=== PATIENT | female | born 1985 | race Caucasian/White ===

== ENCOUNTER 2025-02-26 13:12 | Outpatient (AMB) | payer BC, SELFPAY ==
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
--- OUTSIDE RECORDS SUMMARY | 2025-02-26 13:55 | XMS_ITS | Clinical Summary ---
Author Organization [facility] it Address [address] [place] [address] Care Team Providers Care [employer] On [employer] Director Name Role Phone Huong Nicolas MD Primary Care Provider [phone] Surgical History Surgery Date Site/Laterality Comments TYMPANOSTOMY TUBE PLACEMENT PROCEDURE: HISTORICAL PE TUBES TONSILLECTOMY ADENOIDECTOMY, BILATERAL MYRINGOTOMY AND TUBES PROCEDURE: [place] TONSILLECTOMY & ADENOIDECTOMY <AGE 13 Medical History Medical History Date Comments Anxiety DX:Anxiety Family History Relation Name Status Comments Brother Alive Father Alive Maternal Grandfather Alive dm? Maternal Grandmother unknown Mother Alive htn, ? CAD Paternal Grandfather Alive unknown Paternal Grandmother Alive unknown Social History Tobacco Use Types Packs/Day Years Used Date Smoking Tobacco: Former Cigarettes Q uit: 05/02/2008 Alcohol Use Standard Drinks/Week Comments Yes 4.2 (1 standard drink = 0.6 oz p ure alcohol) Comments Unknown Sex and Gender Information Value Date Recorded Sex Assigned at Not on file Legal Sex Female 10:56 AM EST Gender Identity Not on file Sexual Orientation Not on file Obstetrics History Last Filed Vital Signs Vital Sign Reading Time Taken Comments Blood Pressure 110/72 08/21/2022 10:51 AM EST Pulse 119 08/21/2022 10:51 AM EST Temperature - - Respiratory Rate - - Oxygen Saturation - - Inhaled Oxygen Concentration - - Weight 99.7 kg (219 lb 12.8 oz) 023 10:51 AM EST Height 168.9 cm (5' 6.5 ) 08/21/2022 10 :51 AM EST Body Mass Index 34.95 08/21/2022 10:51 AM EST Plan of Treatment Health Maintenance Due Date Last Done Comments Hepatitis B Vaccines (1 of 3 - 19+ 3-dose series) 2005 Cervical Cancer Screening: P ap Smear 11/15/2007 DTaP,Tdap,and Td Vaccines (2 - Td or Tdap) 06/02/2020 06/02/2010 Cholesterol Screening (Lipid Panel) 06/30/2022 HIV Screening 06/30/2022 Hepatitis C Screening 06/30/2022 Social Influencers of Health Screening 06/30/2022 COVID-19 Vaccine (1 - 2023-2 5 season) 2024 Depression Screening 08/02/2024 Influenza Vaccine (#1) 2025 0, 08/27/2009 HIB Vaccines Aged Out No longer eligi ble based on patient's age to complete this topic HPV Vaccines Aged Out No longer eligi ble based on patient's age to complete this topic Hepatitis A Vaccines Aged Out No long er eligible based on patient's age to complete this topic IPV Vaccines Aged Out No longer eligi ble based on patient's age to complete this topic MMR Vaccines Aged Out No longer eligi ble based on patient's age to complete this topic Meningococcal ACWY Vaccine Aged Out N o longer eligible based on patient's age to complete this topic Meningococcal B Vaccine Aged Out No l onger eligible based on patient's age to complete this topic Pneumococcal Vaccine: Pediatrics (0 to 5 Years) and At-Risk Patients (6 to 49 Years) Aged Out No longer eligible b ased on patient's age to complete this topic RSV Immunization Patients Under 20 months Aged Out No longer eligible b ased on patient's age to complete this topic Varicella Vaccines Aged Out No longer eligible based on patient's age to complete this topic Care Teams Council On Aging Director Relationship Specialty Start Date End Date Huong Nicolas MD [address] [place] [address] PCP - General 04/09/21
--- OUTSIDE RECORDS SUMMARY | 2025-02-26 13:55 | XMS_ITS | Data Portability ---
Author Organization [facility] Address [address] [place] [address] Care Team Providers Care Smooth And [employer]r Worker [employer] Name Role Phone HORACIO TELLEZ Primary Care Provider Assessment Encounter Date Assessment Date Assessment LastModified by Organization Details LastModified Time 07/10/2024 07/10/2024 You are going to be treated for a Urinary Tract Infection. The following are recommendations to help with your symptoms and recovery: 1. Drink Plenty of fluids - Stay hydrated 2. Finish full antibiotic course 3. I recommend starting a Probiotic - I recommend Florastor 4. If you take Azo - this will help the burning and urgency feeling - just be aware it will turn your urine bright yellow. I would not hesitate to be seen again if you develop: 1. Severe Back Pain 2. Abdominal Pain 3. Nausea and Vomiting 4. Vaginal Discharge or Bleeding 5. Fever > 101.0 You symptoms should improve within 72 hours for a typically UTI. If a urine culture was sent out to the lab for you we should get the results back within 4 days. This will be able to prove that your symptoms are caused by a UTI and it will also verify that the correct antibiotic was prescribed. Thank you for using [facility] - please don't hesistate to call our office if you have any questions or concerns. [email or web address] Not available 07/10/2024 12:04:20 Plan of Treatment Reminders Order Date Submit Date Provider Last Modified By Organization Details Last Modified Time Details Appointments None recorded. Lab urinalysis, dipstick 2023 Bella bee [facility], [address] [place], [address], 12:14:46 culture, urine 2023 [facility] ([facility], [facility]7 [facility], [place], [address], 20:06:23 Referral None recorded. Procedures None recorded. Surgeries None recorded. Imaging None recorded. Medication Orders ondansetron 4 mg disintegrat ing tablet 2023 024 [facility] #[id number], [address] [place], [address], 4 12:19:13 cephalexin 500 mg capsule 2023 024 [facility]acy #[id number], [address] [place], [address], 4 12:19:14 Pyridium 200 mg tablet 2023 024 [email or web address] [id number], [address], [place], [id number], 4 11:47:12 amoxicillin 875 mg-potassiu m clavulanate 125 mg tablet 2023 024 [email or web address] [id number], [address], [place], [id number], 4 08:18:21 Allergy Relief (fluticason e) 50 mcg/actuati on nasal spray,suspe nsion 2023 024 [email or web address] [id number], [address], [place], [id number], 4 09:58:07 amoxicillin 875 mg-potassiu m clavulanate 125 mg tablet 2023 024 [email or web address] [id number], [address], [place], [id number], 4 08:18:21 cephalexin 500 mg capsule 2022 024 [email or web address] Not available 09:30:21 Patient TargetsNo targets recorded. Patient Instructions Encounter Date Encounter Id Patient Instructions Last Modified By Organization Details Last Modified Time 03/10/2023 [id number] object in the skin: care instructions [email or web address] Not available 03/10/2023 16:04:03 09/26/2023 [id number] Acute Sinusitis: Care Instructions Not available 09/26/2023 11:33:30 Sinusitis is an infection of the lining of the sinus cavities in your head. Sinusitis often follows a cold. It causes pain and pressure in your head and face. In most cases, sinusitis gets better on its own in 1 to 2 weeks. But some mild symptoms may last for several weeks. Sometimes antibiotics are needed. if you are having problems. It's also a good idea to know your test results and keep a list of the medicines you take. How can you care for yourself at home? Take an vqab-azt-fereiap pain medicine. Avoid Ibuprofen, Aleve and Aspirin if . If the doctor prescribed antibiotics, take them as directed. Do not stop taking them just because you feel better. You need to take the full course of antibiotics. Be careful when taking stsl-wgn-pnffsef cold or influenza (flu) medicines and Tylenol at the same time. Many of these medicines have acetaminophen, which is Tylenol. Read the labels to make sure that you are not taking more than the recommended dose. Too much acetaminophen (Tylenol) can be harmful. Breathe warm, moist air from a steamy shower, a hot bath, or a sink filled with hot water. Avoid cold, dry air. Using a humidifier in your home may help. Follow the directions for cleaning the machine. Use saline (saltwater) nasal washes. This can help keep your nasal passages open and wash out mucus and bacteria. You can buy saline nose drops at a grocery store or drugstore. Or you can make your own at home by adding 1 teaspoon (5 millilitres) of salt and 1 teaspoon (5 millilitres) of baking soda to 2 cups (500 mL) of distilled water. If you make your own, fill a bulb syringe with the solution, insert the tip into your nostril, and squeeze gently. Blow your nose. Put a hot, wet towel or a warm gel pack on your face 3 or 4 times a day for 5 to 10 minutes each time. Try a decongestant nasal spray like oxymetazoline (Drixoral). Do not use it for more than 3 days in a row. Using it for more than 3 days can make your congestion worse. Not available 09/26/2023 11:33:24 10/29/2023 [id number] Acute Sinusitis: Care Instructions Not available 10/29/2023 09:57:15 Due to the histo ry of purulent nasal discharge and nasal congestion for more than 10 days will treat it with antibiotic and nasal decongestion Flonase nasal spray. Patient to follow-up in the clinic for the ear pain or rash. Also encouraged to follow-up with the PCP. Patient agree at this point. [email or web address] Not available 10/29/2023 10:06:46 07/08/2024 [id number] Recommended to come into Urgent care to give Urine and swab samples to determine appropriate treatment next steps. [email or web address] Not available 07/08/2024 19:00:49 07/10/2024 [id number] painful urinatio n (dysuria): care instructions [email or web address] Not available 07/10/2024 12:14:45 nausea and vomiting: care instructions lamarga Not available 07/10/2024 12:19:10 Reason for Referral None Reported. Results Created Date Observation Date Name Description Value Unit Range Abnormal Flag Note LastModifiedBy Organization Detail LastModifiedTime 07/10/2007/11/2024 URINE CULTU DERICK NIÑO urine culture, routine FINAL REPORT Not Available [facility] ([facility]) [address], [place], [address], 07/11/2024 20:06:23 07/10/20 24 07/11/2024 URINE CULTU REDERICK result 1 COMMEN T Mixed uroge nital keaton 50,00 0-100 ,000 colon y formi ng units per mL Not Available [facility] ([facility]) [address], [place], [address], 07/11/2024 20:06:23 07/10/2007/10/2024 urina lysis , dipst ick Unknown Analyte Normal = light yellow Not Available [facility] [address] [place] [address], [phone], 07/10/2024 11:49:49 07/10/2007/10/2024 urina lysis , dipst ick Unknown Analyte Normal = clear Not Available [facility] [address] [place] [address], [phone], 07/10/2024 11:49:49 07/10/2007/10/2024 urina lysis , dipst ick Unknown Analyte Normal = negati ve Not Available [facility] [address] [place] [address], [address], 07/10/2024 11:49:49 07/10/2007/10/2024 urina lysis , dipst ick Unknown Analyte Normal = Negati ve Not Available [facility] [address] [place] [address], [address], 07/10/2024 11:49:49 07/10/2007/10/2024 urina lysis , dipst ick Unknown Analyte Normal = Negati ve Not Available [facility] [address] [place] [address], [phone], 07/10/2024 11:49:49 07/10/2007/10/2024 urina lysis , dipst ick Unknown Analyte Normal = 1.010, 1.015, 1.020 Not Available [facility] [address] [place] [address], [address], 07/10/2024 11:49:49 07/10/2007/10/2024 urina lysis , dipst ick Unknown Analyte Normal = Negati ve Not Available [facility] [address] [place] [address], [phone], 07/10/2024 11:49:49 07/10/20 24 07/10/2024 urina lysis , dipst ick Unknown Analyte Normal = 6.5, 7.0, 7.5, 8.0 Not Available [facility] [address] [place] [address], [address], 07/10/2024 11:49:49 07/10/2007/10/2024 urina lysis , dipst ick Unknown Analyte Normal = Negati ve Not Available [facility] [address] [place] [address], [address], 07/10/2024 11:49:49 07/10/20 24 07/10/2024 urina lysis , dipst ick Unknown Analyte Normal = 0.2, 1.0 Not Available [facility] [address] [place] [address], [address], 07/10/2024 11:49:49 07/10/20 24 07/10/2024 urina lysis , dipst ick Unknown Analyte Normal = Negati ve Not Available [facility] [address] [place] [address], [address], 07/10/2024 11:49:49 07/10/20 24 07/10/2024 urina lysis , dipst ick Unknown Analyte Normal = Negati ve Not Available [facility] [address] [place] [address], [address], 07/10/2024 11:49:49 07/10/20 24 07/10/2024 urina lysis , dipst ick Unknown Analyte Yellow Not Available [facility] [address] [place] [address], [phone], 07/10/2024 11:49:49 07/10/20 24 07/10/2024 urina lysis , dipst ick Unknown Analyte Clear Not Available [address], [address], 07/10/2024 11:49:49 07/10/20 24 07/10/2024 urina lysis , dipst ick Unknown Analyte Negati ve Not Available [facility] [address] [place] [address], [address], 07/10/2024 11:49:49 07/10/2007/10/2024 urina lysis , dipst ick Unknown Analyte Negati ve Not Available [address], [address], 07/10/2024 11:49:49 07/10/2007/10/2024 urina lysis , dipst ick Unknown Analyte Trace Not Available [address] [place] [address], [phone], 07/10/2024 11:49:49 07/10/20 24 07/10/2024 urina lysis , dipst ick Unknown Analyte 1.025 Not Available [address], [address], 07/10/2024 11:49:49 07/10/20 24 07/10/2024 urina lysis , dipst ick Unknown Analyte Negati ve Not Available [facility] [address] [place] [address], [address], 07/10/2024 11:49:49 07/10/20 24 07/10/2024 urina lysis , dipst ick Unknown Analyte 5.5 Not Available [address] [place], [address], 07/10/2024 11:49:49 07/10/2007/10/2024 urina lysis , dipst ick Unknown Analyte 30 mg/dL Not Available [address], [address], 07/10/2024 11:49:49 07/10/2007/10/2024 urina lysis , dipst ick Unknown Analyte 0.2 E.U./d L Not Available [address], [address], 07/10/2024 11:49:49 07/10/2007/10/2024 urina lysis , dipst ick Unknown Analyte Negati ve Not Available [address], [address], 07/10/2024 11:49:49 07/10/2007/10/2024 urina lysis , dipst ick Unknown Analyte Trace Not Available [address], [address], 07/10/2024 11:49:49 Result Notes None recorded. Problems Name Problem SNOMED Code Status Onset Date Resolution Date Notes Provider Name and Address Organization Details Recorded Time Disorder of thyroid gland 75174631 Active 2022 BHARGAVI DRINKWINE null, PA - [facility] 12:44:53 Asthma 303271204 Active 2022 BHARGAVI DRINKWINE null, PA - [facility] 12:45:00 Migraine 39015839 Active 2022 BHARGAVI DRINKWINE null, PA - [facility] 12:45:07 Anxiety 33970005 Active 2022 BHARGAVI DRINKWINE null, PA - [facility] 12:45:30 Depressive disorder 08768812 Active 2022 BHARGAVI DRINKWINE null, PA - [facility] 3 12:45:37 Posttraumatic stress disorder 00544580 Active 2022 BHARGAVI DRINKWINE null, PA - [facility] 3 12:45:43 Dysuria 33093861 Active 2023 KEANU TANG NP [address] [facility] [place], [address], [place] - [facility] 4 11:59:02 Nausea 811245710 Active 2023 KEANU TANG NP [address] [place], [address], [place] - [facility] 4 12:17:22 Problem Notes None recorded. Procedures Surgical History Date Name Laterality Status Provider Name and Address Organization Details Recorded Time 07/08/20 Virtual Visit completed Ca May PA - [facility] 07/08/2024 08:17:44 10/29/19 24 Virtual Visit completed Shweta Meehan PA - [facility] 10/29/2023 09:35:34 09/26/19 24 Virtual Visit completed Meena Adler PA - [facility] 09/26/2023 09:28:32 03/10/20 23 Foreign Body Removal, Skin with Incision completed Bella Mao [place] [address] [place], [address], [place] - [facility] 03/10/2023 16:06:43 myringotomy and insertion of tympanic ventilation tube completed BHARGAVI DRINKWINE PA - [facility] 01/23/2023 12:45:57 adenoid excision completed BHARGAVI DRINKWINE PA - [facility] 01/23/2023 12:46:08 manipulation of displaced nasal septum completed BHARGAVI DRINKWINE PA - [facility] 01/23/2023 12:46:17 Imaging Results None recorded. Procedure Notes None recorded. Medical Equipment None Reported. Allergies Allergen ID Allergen Name Allergen Category Reaction Reaction Severity Criticality Documentation Date Start Date Code Code System Note Provider Name and Address Organization Details Recorded Time 731995 mold extract environme nt Not available Not available Not available 01/23/2023 68237 8 RxNorm BHARGAVI DRINKWINE null, PA - [facility] 3 12:41:54 880221 house dust allergeni c extract environme nt,medica tion Not available Not available Not available 01/23/2023 59441 9 RxNorm BHARGAVI DRINKWINE null, PA - [facility] 3 12:42:00 322327 animal dander environme nt Not available Not available Not available 01/23/2023 [id number] UNK BHARGAVI DRINKWINE null, PA - [facility] 3 12:42:06 Medications Name Sig Start Date Stop Date Status Note LastModified by Organization Details LastModified Time artificial tears lubricant 15ml INSTILL 1 DROP INTO BOTH EYES NEEDED active Not Available Not Available No t Available amoxicillin 500 mg capsule TAKE 1 CAPSULE BY MOUTH THREE TIMES DAILY 01/23 completed Not Available Not Available Not Available metformin 500 mg tablet TAKE 1 TABLET BY MOUTH TWICE DAILY 07/10 completed Not Available Not Available Not Available trazodone 50 mg tablet TAKE 1 - 2 TABLETS BY MOUTH EVERY NIGHT AT BEDTIME NEEDED FOR SLEEP 07/10 completed Not Available Not Available Not Available fluconazole 150 mg tablet TAKE 1 TABLET BY MOUTH EVERY DAY FOR 1 DAY 07/10 completed Not Available Not Available Not Available benzonatate 200 mg capsule TAKE 1 CAPSULE BY MOUTH THREE TIMES DAILY FOR 7 DAYS 01/23 completed Not Available Not Available Not Available valacyclovi r 1 gram tablet TAKE 1 TABLET BY MOUTH TWICE DAILY 09/26 completed Not Available Not Available Not Available sumatriptan 100 mg tablet TAKE 1 TABLET BY MOUTH AT THE ONSET OF HEADACHE UP TO TWICE DAILY 07/10 completed Not Available Not Available Not Available ondansetron HCl 4 mg tablet TAKE 1 TABLET BY MOUTH EVERY DAY active Not Available Not Available No t Available famotidine 40 mg tablet active Not Available Not Available Not Available sertraline 100 mg tablet TAKE 2 TABLETS BY MOUTH EVERY DAY 07/10 completed Not Available Not Available Not Available Pyridium 200 mg tablet Take 1 tablet 3 times a day by oral route as needed for 3 days, for urinary discomfor t. 07/10 completed Not Available Not Available Not Available valacyclovi r 500 mg tablet TAKE 1 TABLET BY MOUTH EVERY 12 HOURS FOR 3 DAYS 07/10 completed Not Available Not Available Not Available amitriptyli ne 50 mg tablet TAKE 1 TABLET BY MOUTH EVERY DAY AT BEDTIME active Not Available Not Available No t Available triamcinolo ne acetonide 0.1 % topical cream APPLY SPARINGLY TOPICALLY TO THE AFFECTED AREA TWICE DAILY NEEDED. NO MORE THAN 2 WEEKS 09/26 completed Not Available Not Available Not Available lamotrigine 25 mg tablet TAKE 1 TABLET BY MOUTH AT BEDTIME 01/23 completed Not Available Not Available Not Available bupropion HCl 100 mg tablet TAKE 1 TABLET BY MOUTH EVERY DAY FOR DEPRESSIO N 07/10 completed Not Available Not Available Not Available levothyroxi ne 88 mcg tablet TAKE 1 TABLET BY MOUTH DAILY active Not Available Not Available No t Available cephalexin 500 mg capsule Take 1 capsule every 6 hours by oral route for 7 days. 2023 active Not Available Not Available Not Avai lable clotrimazol e-betametha sone 1 %-0.05 % topical cream APPLY TOPICALLY TO THE AFFECTED AREA TWICE DAILY NEEDED FOR IRRITATIO N 07/10 completed Not Available Not Available Not Available misoprostol 200 mcg tablet USE 4 TABLETS VAGINALLY 4-8 HOURS PRIOR TO PROCEDUER 07/10 completed Not Available Not Available Not Available divalproex ER 500 mg tablet,exte nded release 24 hr TAKE 1 TABLET BY MOUTH DAILY 01/23 completed Not Available Not Available Not Available montelukast 10 mg tablet TAKE 1 TABLET BY MOUTH DAILY AT BEDTIME active Not Available Not Available No t Available ondansetron 4 mg disintegrat ing tablet Place 2 tablets twice a day by transling ual route for 3 days, for nausea. 2023 active Not Available Not Available Not Avai lable loratadine 10 mg tablet TAKE 1 TABLET BY MOUTH DAILY active Not Available Not Available No t Available amoxicillin 875 mg-potassiu m clavulanate 125 mg tablet Take 1 tablet twice a day by oral route with meal(s) for 10 days, for nasal congestio n. 07/08 completed Not Available Not Available Not Available aripiprazol e 10 mg tablet TAKE 1 TABLET BY MOUTH EVERY DAY 07/10 completed Not Available Not Available Not Available aripiprazol e 5 mg tablet TAKE 1 TABLET BY MOUTH EVERY DAY 07/10 completed Not Available Not Available Not Available chlorhexidi ne gluconate 0.12 % mouthwash SWISH WITH 1 CAPFUL FOR 30 SECOND AND SPIT AT BREAKFAST AND BEDTIME 07/10 completed Not Available Not Available Not Available fluocinolon e acetonide oil 0.01 % ear drops 07/10 completed Not Available Not Available Not Available Adelia 0.35 mg tablet TAKE 1 TABLET BY MOUTH EVERY DAY 01/23 completed Not Available Not Available Not Available Liletta 20.4 mcg/24 hr (up to 8 years) 52 mg intrauterin e device 07/10 completed Not Available Not Available Not Available Allergy Relief (fluticason e) 50 mcg/actuati on nasal spray,suspe nsion [place] 1 spray every day by intranasa l route as directed for 90 days, for nasal congestio n. 2023 active Not Available Not Available Not Avai lable EluRyng 0.12 mg-0.015 mg/24 hr vaginal ring INSERT 1 RING VAGINALLY FOR 3 WEEKS THEN REMOVE FOR 1 WEEK 09/26 completed Not Available Not Available Not Available QuickVue At-Home COVID-19 Test kit TEST DIRECTED TODAY 01/23 completed Not Available Not Available Not Available Vitals Date Recorded Body height Body mass index (BMI) Body weight Provider Name and Address Organization Details Last Updated DateTime 09/26/2023 170.18 cm 35.4 kg/m2 930682.88 g Meena Adler PA - [facility] 09/26/2023 09:29:10 Date Recorded Body height Body mass index (BMI) Body weight Provider Name and Address Organization Details Last Updated DateTime 10/29/2023 170.18 cm 35.4 kg/m2 935078.88 g Shweta Meehan PA - [facility] 10/29/2023 09:39:00 Date Recorded Body height Body mass index (BMI) Body weight Oxygen saturation Oxygen saturation in Arterial blood by Pulse oximetry Pain severity - 0-10 verbal numeric rating [Score] - Reported Heart rate Respiratory rate Systolic And Diastolic Provider Name and Address Organization Details Last Updated DateTime 3 170.18 cm 35.4 kg/m2 444521. 88 g 97 % 97 % 6 91 /min 18 /min 106/75 mm[Hg] RENATO HERNANDEZ [place] - [facility] 3 15:41:24 Date Recorded Body height Body mass index (BMI) Body weight Provider Name and Address Organization Details Last Updated DateTime 07/08/2024 170.18 cm 36 kg/m2 281283.25 g Ca Carrillot [place] - [facility] 07/08/2024 08:19:31 Date Recorded Body height Body mass index (BMI) Body weight Body temperature Oxygen saturation Oxygen saturation in Arterial blood by Pulse oximetry Heart rate Systolic And Diastolic Provider Name and Address Organization Details Last Updated DateTime 4 170.18 cm 36.6 kg/m2 785374. 61 g 98.7 [degF] 97 % 97 % 111 /min 122/86 mm[Hg] Kayley Clarke [place] - [facility] 4 11:43:50 Date Recorded Heart rate Systolic And Diastolic Provider Name and Address Organization Details Last Updated DateTime 07/10/2024 104 /min 140/100 mm[Hg] Maynor Reese [place] - [facility] 07/10/2024 12:18:53 Social History Question Answer Notes LastModified by Organizat ion Details LastModified Time Tobacco Smoking Status Never Smoker Shweta murillo [place] - [facility] 10/29/2023 09:39:50 Have You Had A Flu Shot This Season? No Information not available 09/26/2023 If No, Would You Like A Flu Shot Today? No Information not available 10/29/2023 Have You Had Direct Contact, Or Contact During Intimacy, With Monkeypox Rash, Scabs, Or Body Fluids From A Person With Monkeypox? No Information not available 10/29/2023 What Was The Date Of Your Most Recent Tobacco Screening? 10/29/2023 Information not available 10/29/2023 What Is Your Relationship Status? Single Information not available 10/29/2023 Have You Recently Traveled Abroad? No Information not available 01/23/2023 Are You Currently In School? No Information not available 10/29/2023 Sex: Unknown Functional Status Question Answer Note LastModified by Organizat ion Details LastModified Time How many times per week do you consume alcohol? Less than 1 time per week Information not available 10/29/2023 Do you use any illicit or recreational drugs? No Information not available 01/23/2023 Do you or have you ever used any other forms of tobacco or nicotine? No Information not available 01/23/2023 What is your level of alcohol consumption? Occasional [email or web address] Information not available 09/26/2023 Are you currently employed? Yes Information not available 10/29/2023 Mental Status None recorded. Family History Relationship Description Onset Age of this Age Resolved Age Notes LastModified by Organization Details LastModified Time Mother Hypertensive disorder [email or web address] Not available 01/23 12:46:30 Maternal Grandmother Leukemia [email or web address] Not available 12:46:39 Maternal Uncle Cerebrovascu lar accident [email or web address] Not available 12:46:51 Medical History No medical history recorded. Gynecological History Statement/Question Response Date of LMP 06/20/2024 Is there any chance of ? No LMP Definite Obstetrics History GPAL:G 0 P 0 0 0 0 Immunizations Vaccine Type Date Status Note Provider Nam e and Address Organization Details Recorded Time COVID-19, mRNA, LNP-S, PF, 100 mcg/0.5mL dose or 50 mcg/0.25mL dose 2 completed BHARGAVI DRINKWINE null, PA - [facility] 01/23/2023 12:44:37 COVID-19, mRNA, LNP-S, PF, 30 mcg/0.3 mL dose 1 completed BHARGAVI DRINKWINE null, PA - [facility] 01/23/2023 12:44:37 COVID-19, mRNA, LNP-S, PF, 30 mcg/0.3 mL dose 1 completed BHARGAVI DRINKWINE null, PA - [facility] 01/23/2023 12:44:37 Tdap 0 completed BHARGAVI DRINKWINE null, PA - [facility] 01/23/2023 12:44:37 Influenza, split virus, trivalent, preservative 0 completed BHARGAVI DRINKWINE null, PA - [facility] 01/23/2023 12:44:37 Influenza, split virus, trivalent, PF 6 completed BHARGAVI DRINKWINE null, PA - [facility] 01/23/2023 12:44:37 Influenza, split virus, trivalent, PF 5 completed BHARGAVI DRINKWINE null, PA - [facility] 01/23/2023 12:44:37 Novel [id number], preservative-free 0 completed BHARGAVI DRINKWINE null, PA - [facility] 01/23/2023 12:44:37 Influenza, split virus, quadrivalent, PF 0 completed BHARGAVI DRINKWINE null, PA - [facility] 01/23/2023 12:44:37 Influenza, split virus, quadrivalent, PF 1 completed BHARGAVI DRINKWINE null, PA - [facility] 01/23/2023 12:44:37 Influenza, split virus, quadrivalent, PF 2 completed BHARGAVI DRINKWINE null, PA - [facility] 01/23/2023 12:44:37 Past Encounters Encounter ID Performer Location Encounter Start Date Encounter Closed Date Diagnosis/Indication Diagnosis SNOMED-CT Code Diagnosis ICD10 Code Diagnosis Note [id number] 2099_[facility] [address] [address] 7 12/14/2018 08:37:03 12/14/2018 09:30:[id number] [place] [address] [address] [address] 7 05/25/2021 11:50:25 05/25/2021 13:48:43 [id number] [address] [place] [address] 07/12/2020 12:18:27 07/12/2020 15:14:45 [id number] [address] [place] [address] 7 06/24/2018 15:01:31 06/24/2018 15:35:55 [id number] [address] [place] [address]713 7 07/20/2020 08:23:04 07/20/2020 10:48:02 [id number] [address] [place] [address]887 7 12/02/2018 11:27:35 12/02/2018 12:12:22 [id number] [facility] [address] [place] [address] 7 06/22/2022 14:26:13 06/22/2022 16:00:51 [id number] [address] [address] [facility] [place] [address] 7 05/16/2020 14:25:44 05/16/2020 16:01:31 [id number] [facility] [address] [place] [address] 7 07/24/2021 12:11:00 07/24/2021 12:56:40 [id number] [address] [place] [address] 7 10/18/2018 15:38:41 10/18/2018 17:29:01 [id number] [address] [place] [address] 7 02/28/2019 10:52:29 02/28/2019 11:54:32 [id number] [facility] [address] [place] [address] 7 08/14/2018 12:11:21 08/14/2018 14:14:11 [id number] 2099_[facility] [address] [place] [address]582 7 07/24/2020 09:26:30 07/24/2020 16:32:[id number] [place] [address] [address] [place] [address] 7 04/14/2019 15:11:33 04/14/2019 15:44:02 [id number] [facility] [address] [place] [address] 7 12/30/2020 16:02:07 12/30/2020 16:40:[id number] [place] [address] [address] [place] [address]199 7 08/23/2019 10:00:26 08/23/2019 11:57:[id number] [place] [address] [address] [place] [address]288 7 06/16/2021 11:08:37 06/16/2021 12:17:59 [id number] GUILLERMO GUADARRAMA [address] [address] [place] [address] 01/23/2023 11:00:51 01/23/2023 13:31:27 [facility] [id number] G43.909 [id number] [place] Mao [place] [address] [place] [address] 7 03/10/2023 15:26:27 03/10/2023 16:10:41 Foreign body in left ear [id number] T16.2XXA removed successful ly, no complicati [place] [id number] [place] [address] [place] [address] 09/26/2023 09:10:25 09/26/2023 10:05:44 Acute sinusitis [id number] J01.90 Sinusitis is an infection of the lining of the sinus cavities in your head. Sinusitis often follows a cold. It causes pain and pressure in your head and face. In most cases, sinusitis gets better on its own in 1 to 2 weeks. But some mild symptoms may last for several weeks. Sometimes antibiotic s are needed. if you are having problems. It's also a good idea to know your test results and keep a list of the medicines you take. How can you care for yourself at home? Take an over-the-c ounter pain medicine. Avoid Ibuprofen, Aleve and Aspirin if . If the doctor prescribed antibiotic s, take them as directed. Do not stop taking them just because you feel better. You need to take the full course of antibiotic s. Be careful when taking over-the-c ounter cold or influenza (flu) medicines and Tylenol at the same time. Many of these medicines have acetaminop hen, which is Tylenol. Read the labels to make sure that you are not taking more than the recommende d dose. Too much acetaminop hen (Tylenol) can be harmful. Breathe warm, moist air from a steamy shower, a hot bath, or a sink filled with hot water. Avoid cold, dry air. Using a humidifier in your home may help. Follow the directions for cleaning the machine. Use saline (saltwater ) nasal washes. This can help keep your nasal passages open and wash out mucus and bacteria. You can buy saline nose drops at a grocery store or drugstore. Or you can make your own at home by adding 1 teaspoon (5 millilitre s) of salt and 1 teaspoon (5 millilitre s) of baking soda to 2 cups (500 mL) of distilled water. If you make your own, fill a bulb syringe with the solution, insert the tip into your nostril, and squeeze gently. Blow your nose. Put a hot, wet towel or a warm gel pack on your face 3 or 4 times a day for 5 to 10 minutes each time. Try a decongesta nt nasal spray like oxymetazol ine (Drixoral) . Do not use it for more than 3 days in a row. Using it for more than 3 days can make your congestion worse. [id number] Kaleb Kellogg NP [address]_[facility] [address] [facility] [place] [address] 10/29/2023 09:32:07 10/29/2023 10:06:18 Acute sinusitis [id number] J01.90 Sinusitis is an infection of the lining of the sinus cavities in your head. Sinusitis often follows a cold. It causes pain and pressure in your head and face. In most cases, sinusitis gets better on its own in 1 to 2 weeks. But some mild symptoms may last for several weeks. Sometimes antibiotic s are needed. if you are having problems. It's also a good idea to know your test results and keep a list of the medicines you take. How can you care for yourself at home? Take an over-the-c ounter pain medicine. Avoid Ibuprofen, Aleve and Aspirin if . If the doctor prescribed antibiotic s, take them as directed. Do not stop taking them just because you feel better. You need to take the full course of antibiotic s. Be careful when taking over-the-c ounter cold or influenza (flu) medicines and Tylenol at the same time. Many of these medicines have acetaminop hen, which is Tylenol. Read the labels to make sure that you are not taking more than the recommende d dose. Too much acetaminop hen (Tylenol) can be harmful. Breathe warm, moist air from a steamy shower, a hot bath, or a sink filled with hot water. Avoid cold, dry air. Using a humidifier in your home may help. Follow the directions for cleaning the machine. Use saline (saltwater ) nasal washes. This can help keep your nasal passages open and wash out mucus and bacteria. You can buy saline nose drops at a grocery store or drugstore. Or you can make your own at home by adding 1 teaspoon (5 millilitre s) of salt and 1 teaspoon (5 millilitre s) of baking soda to 2 cups (500 mL) of distilled water. If you make your own, fill a bulb syringe with the solution, insert the tip into your nostril, and squeeze gently. Blow your nose. Put a hot, wet towel or a warm gel pack on your face 3 or 4 times a day for 5 to 10 minutes each time. Try a decongesta nt nasal spray like oxymetazol ine (Drixoral) . Do not use it for more than 3 days in a row. Using it for more than 3 days can make your congestion worse. [id number] SNEHAL MAJOR MD [address] [place] [address] 07/08/2024 08:16:12 07/08/2024 08:55:36 Dysuria [id number] R30.0 Symptom relief only. This is not the treatment for a urine infection. [id number] GUILLERMO GUADARRAMA [address] [address] 07/10/2024 11:23:00 07/10/2024 12:28:56 Dysuria [id number] R30.0 Acute urin cary tract infection [id number] N39.0 Nausea [id number] R11.0 Health Concerns Section Related Observation LastModified by Organization Detai ls LastModified Time None Recorded Concern Status LastModified by Organization Details LastModified Time None Recorded Advance Directives Directive None Recorded Payers Insurance Date Sequence Insurance Name Policy Number Policy Chowdhury Covered Member ID Chowdhury Member ID Guarantor Name 07/10/2024 1 [facility] ([facility] [id number] Aleja Espinoza [id number] Aleja Espinoza 09/26/2023 1 [facility] [employer] [facility] WITH [facility] (MEDICAID HMO) [id number] Aleja Espinoza [id number] Aleja Espinoza 07/01/2022 SUSHILA Hunt [id number] Aleja Espinoza OBGyn Episode No OBEpisode recorded.
--- OUTSIDE RECORDS SUMMARY | 2025-02-26 13:56 | XMS_ITS ---
Author Name [facility] Organization Unknown Encounters Encounter Type Encounter Reason Primary Diagnosis Location Date Ambulatory [facility] ([facility] 07/10/2024 Ambulatory [facility] ([facility]) 01/01/2024
== END 2025-02-26 14:08 | disposition home or self-care (01) ==
LOC: HO.HSM 13:12
PROVIDERS: Visit Provider Registered Nurse
DX: G93.2 Benign intracranial hypertension (principal); G43.909 Migraine, unspecified, not intractable, without status migrainosus; G44.209 Tension-type headache, unspecified, not intractable
CPT/HCPCS: 99214

== ENCOUNTER → 2025-03-21 07:10 | Outpatient (BNV) | payer BC, SELFPAY | PROVIDERS: PCP Internal Medicine; Visit Provider Radiology Diagnostic Radiology | DX: G93.2 Benign intracranial hypertension (principal) | CPT/HCPCS: 62328 ==

== ENCOUNTER 2025-03-21 09:38 | Day surgery (SDC) | payer BC, SELFPAY ==
--- OUTSIDE RECORDS SUMMARY | 2025-03-01 23:59 | XMS_ITS | Continuity of Care Document ---
Author Organization [facility] Address [address] [place] [address]- Care Team Providers Care Metrology Specialist Name Role Phone William LUNDY, Hardy Coffey Primary Care Physician Encounter [facility] Date(s): 01/30/25 - 03/01/25 [facility] [address] [place] [address]- Encounter Type: Triage Allergies, Adverse Reactions, Alerts Substance Criticality Severity Reaction Reaction Severity Status Animal Dander Active Dust Active Mold Active Pollen Active Medications famotidine 20 mg oral tablet 20 mg, 1, tablet, By Mouth, Daily at bedtime, # 90 tablet, Refills 1, Tot. Refills 1, Maintenance, 08/14/24 3:07:00 PM EST, Route to Pharmacy Electronically, [facility]/pharmacy #[id number], Partial fill upon patient request if the prescription is for a schedule II opioid drug., 170, cm, 08/14/24 14:36:00 EST, Height, 101, kg, 09/09/23 15:01:00 EST, Dry Weight Start Date: 08/14/24 Stop Date: 02/10/25 Status: Ordered Quantity: 90.0 Unit: tablet Repeat number: 2 Indications: Gastro-esophageal reflux disease without esophagitis; Flonase 50 mcg/inh nasal spray 1 sprays, Daily, 0 Refills, Maintenance, 02/01/14 12:45:27 PM EDT Start Date: 02/01/14 Status: Ordered Repeat number: 1 levalbuterol 0.63 mg/3 mL inhalation solution 3 mL = 0.63 mg, Neb, 3 times a day, PRN Wheezing/Shortness of Breath, DX: J45.909, # 270 mL, 11 Refills, Maintenance, 10/07/23 4:09:00 PM EST, Solution, [id number], Partial fill upon patient request if the prescription is for a schedule II opioid drug., 170, cm, 10/07/23 15:24:00 EST, Height, 101, kg, 09/09/23 15:01:00 EST, Dry Weight Start Date: 10/07/23 Stop Date: 10/01/24 Status: Ordered Quantity: 270.0 Unit: mL Repeat number: 12 levalbuterol 45 mcg/inh inhalation aerosol 2 puffs, Inhalation, Every 6 hours, PRN for wheezing, # 15 Gm, 11 Refills, Maintenance, 10/07/23 4:08:00 PM EST, Aerosol, [id number], Partial fill upon patient request if the prescription is for a schedule II opioid drug., 170, cm, 10/07/23 15:24:00 EST, Height, 101, kg, 09/09/23 15:01:00 EST, Dry Weight Start Date: 10/07/23 Stop Date: 10/01/24 Status: Ordered Quantity: 15.0 Unit: g Repeat number: 12 levothyroxine 100 mcg (0.1 mg) oral capsule 1 capsule = 100 mcg, By Mouth, Daily, # 30 capsule, 0 Refills, Maintenance, 12/05/24 7:03:00 AM EDT, Capsule, Partial fill upon patient request if the prescription is for a schedule II opioid drug. Start Date: 12/05/24 Stop Date: 01/04/25 Status: Ordered Quantity: 30.0 Unit: capsule Repeat number: 1 meclizine 25 mg oral tablet 1 tablet = 25 mg, By Mouth, 3 times a day, PRN for motion sickness, # 30 tablet, 0 Refills, Maintenance, 10/28/24 3:53:00 PM EDT, Tablet, [facility]/pharmacy #[id number], Partial fill upon patient request if the prescription is for a schedule II opioid drug., 170, cm, 10/28/24 11:58:00 EDT, Height, 102, kg, 10/28/24 11:58:00 EDT, Dry Weight Start Date: 10/28/24 Status: Ordered Quantity: 30.0 Unit: tablet Repeat number: 1 montelukast 10 mg oral tablet 10 mg, 1, tablet, By Mouth, Daily at bedtime, ORAL, TABLET, 2 Refill(s),j45.40, # 30 tablet, Refills 11, Tot. Refills 11, Maintenance, 11/30/24 11:12:00 AM EDT, [id number] Partial fill upon patient request if the prescription is for a schedule II opioid drug., 170, cm, 11/21/24 14:03:00 EDT, Height, 102, kg, 10/28/24 11:58:00 EDT, Dry Weight Start Date: 11/30/24 Status: Ordered Quantity: 30.0 Unit: tablet Repeat number: 12 omeprazole 40 mg oral enteric coated capsule 1 capsule = 40 mg, By Mouth, Daily, # 30 capsule, 4 Refills, Maintenance, 02/07/25 10:14:00 AM EDT, EC Capsule, [facility]/pharmacy #[id number], Partial fill upon patient request if the prescription is for a schedule II opioid drug., 170, cm, 02/04/25 12:25:00 EDT, Height, 100.7, kg, 02/04/25 12:25:00 EDT, Dry Weight Start Date: 02/07/25 Status: Ordered Quantity: 30.0 Unit: capsule Repeat number: 5 Indications: Epigastric pain; omeprazole 40 mg oral enteric coated capsule 1 capsule = 40 mg, By Mouth, Daily, # 90 capsule, 1 Refills, Maintenance, 08/14/24 3:06:00 PM EST, EC Capsule, [facility]/pharmacy #[id number], Partial fill upon patient request if the prescription is for a schedule II opioid drug., 170, cm, 08/14/24 14:36:00 EST, Height, 101, kg, 09/09/23 15:01:00 EST, Dry Weight Start Date: 08/14/24 Stop Date: 02/10/25 Status: Ordered Quantity: 90.0 Unit: capsule Repeat number: 2 ondansetron 4 mg oral tablet, disintegrating 12 each, 0 Refill(s), PLACE 2 TABLETS ON TONGUE TWICE A DAY FOR NAUSEA FOR 3 DAYS, 0 Refills, 08/14/24 2:36:00 PM EST, Partial fill upon patient request if the prescription is for a schedule II opioiddrug. Start Date: 08/14/24 Status: Ordered Repeat number: 1 PARoxetine 40 mg oral tablet 40 mg, 1, tablet, By Mouth, Daily, # 30 tablet, Refills 0, Maintenance, 01/31/25 2:04:00 PM EDT, Partial fill upon patient request if the prescription is for a schedule II opioid drug. Start Date: 01/31/25 Status: Ordered Quantity: 30.0 Unit: tablet Repeat number: 1 valACYclovir 500 mg oral tablet ORAL, TABLET, 4 Refill(s),, Refills 0, 11/09/18 3:22:00 PM EDT Start Date: 11/09/18 Status: Ordered Repeat number: 1 Wixela Inhub 500 mcg-50 mcg inhalation powder 1 inhalation, Inhalation, 2 times a day, rinse mouth and throat after use, j45.40, # 1 each, 11 Refills, Maintenance, 07/01/25 2:31:00 PM EST, Powder, [facility] #[id number], Partial fill upon patient request if the prescription is for a schedule II opioid drug., 1 inhalation Inhalation 2 times a day,x30 days,Instr:rinse mouth and throat after use, j45.40, 170, cm, 01/13/24 15:58:00 EDT, Height, 101,kg, 09/09/23 15:01:00 EST, Dry Weight Start Date: 07/01/25 Stop Date: 06/26/26 Status: Ordered Quantity: 1.0 Unit: each Repeat number: 12 Problem List Condition Confirmation Course Effective Dates Status H ealth Status Informant Depression with anxiety Confirmed Active Asthma Confirmed Active Elevated anti-tissue transglutaminase (tTG) IgA level Confirmed Active BRBPR (bright red blood per rectum) Confirmed Active Genital herpes simplex Confirmed Active Hx of major depression Confirmed Active Hearing loss Confirmed Active Heartburn Confirmed Active Hypothyroidism Confirmed Active IBS (irritable bowel syndrome) Confirmed Active Nodular goiter Confirmed Active Posttraumatic stress disorder Confirmed Active Anogenital psoriasis Confirmed Active Severe obesity (BMI 35.0-39.9) with comorbidity Confirmed Active Social History Social History Type Response Smoking Status Former smoker, quit more than 30 days ago; Other: 1-2/day; Stopped at age: 38; entered on: 01/31/25 Sex Sex Representation Female (finding) Patient Care team information Care Team Personnel Name: Lucio Underwood RN Position: [facility] Rad RN Member Role: Primary Care Nurse Name: Hardy Thomas MD Position: [facility] Physician - Primary Care Member Role: PCP Address: [address] [place] [address], [address] [place], [place] [address] Telecom: Care Team Related Persons Name: LATIA MENDEZ Name: IVAN GOODLILAZACARIAS Name: DONTAE GOOD Insurance Providers Guarantor name: [facility] Information #: 1 Payer: [employer] [facility] Payer Identifier: NA Member Number: [id number] Group Number: [id number] Subscriber Identifier: [id number] Relationship to Subscriber: self Coverage Type: NA Coverage Verification Date: NA Telecom: Address:
--- OUTSIDE RECORDS SUMMARY | 2025-03-05 09:05 | XMS_ITS | Clinical Summary ---
Author Organization [facility] it Address [address] [place] [address] Care Team Providers Care On Car Supervisor Name Role Phone Huong Nicolas MD Primary Care Provider [phone] Surgical History Surgery Date Site/Laterality Comments TYMPANOSTOMY TUBE PLACEMENT PROCEDURE: HISTORICAL PE TUBES TONSILLECTOMY ADENOIDECTOMY, BILATERAL MYRINGOTOMY AND TUBES PROCEDURE: [place] TONSILLECTOMY & ADENOIDECTOMY <AGE 13 Medical History [...] age to complete this topic Care Teams On Car Supervisor Relationship Specialty Start Date End Date Huong Nicolas MD [address] [place] [address] PCP - General 04/09/21
[2025-03-21] VITALS (8 sets, daily range): BP systolic 112–128; BP diastolic 69–83; PULSE 65–88; RESP 16–20; TEMP 36.3–37.7; O2SAT 96–99; BMI 35.3
--- NOTE | ~2025-03-21 | FL_ITS ---
EXAMINATION: XR LUMBAR PUNCTURE CLINICAL INFORMATION: G93.2 - Benign intracranial hypertension COMPARISON: None available. TECHNIQUE: Following explaining fluoroscopy-guided lumbar puncture procedure, benefits and risk, a written consent was obtained. Patient was placed prone on fluoroscopy table and optimal skin site was selected overlying the L3-4 disc level. 1% lidocaine was administered at puncture site. A 20-gauge spinal needle was then advanced from the skin intrathecally at the L3-4 disc level. After removing stylet and observing CSF return, patient was quickly placed in left lateral decubitus view and opening CSF pressure was obtained. CSF fluid was then collected in 4 test tubes, stylet was reintroduced and needle withdrawn. Complete hemostasis achieved at puncture site. Sterile Band-Aid applied postprocedure. FINDINGS: On visualized images there is mild loss of L3-4 disc height with ventral spondylosis. No visible bony abnormality seen. The opening CSF pressure measures 21 cm of water. Approximately 16 mL of clear CSF fluid was collected in 4 test tubes. FLUOROSCOPY TIME: 18 seconds. DOSE AREA PRODUCT: 571.5 uGy-m2 (microgray-meter squared) FL/FL guided lumbar puncture LP IMPRESSION: Successful fluoroscopy-guided lumbar puncture performed without immediate complications. Electronically signed by: Kendrick Cruz MD 03/21/2025 02:39 PM EDT
[2025-03-21 10:04] LABS: UPreg QC Valid YES
[2025-03-21 10:10] LABS: MANUAL DIFF FLAG NO
[2025-03-21 10:12] LABS: Hematocrit 37.3 % (37.0-47.0); Hemoglobin 12.8 g/dl (12.0-16.0); Imm Gran Abs Auto 0.01 X10*3/uL (0.00-0.03); Imm Gran Pct Auto 0.2 % (0.0-0.4); Lymphocytes Absolute Auto 2.2 X10*3/uL (1.2-4.9); Mean Corpuscular HGB Conc 34.3 g/dl (31.0-35.0); Mean Corpuscular Hemoglobin 31.7 pg (27.0-33.0); Mean Corpuscular Volume 92.3 fL (80.0-98.0); NRBC Abs Auto 0.000 X10*3/uL (0.0-0.012); NRBC Pct Auto 0.0 /100WBC (0.0-0.2); Platelet Count 176 X10*3/uL (160-400); Red Blood Count 4.04 X10*6/uL (4.20-5.50); White Blood Count 6.5 X10*3/uL (4.8-10.8)
[2025-03-21 10:17] LABS: INTERNATIONAL NORM RATIO 1.0 (0.9-1.1); Prothrombin Time 11.6 SEC (10.9-12.4)
[2025-03-21 10:30] LABS: Anion Gap 14 (12-20); Blood Urea Nitrogen 11 mg/dL (9-16); Calcium 8.9 mg/dL (8.4-10.2); Carbon Dioxide 22 mmol/L (22-29); Chloride 108 mmol/L (96-108); Creatinine Clr Calc Pharmacy 137.8; Estimated Glomerular Filt Rate > 60; Potassium 3.9 mmol/L (3.3-5.1); Sodium 140 mmol/L (135-145)
[2025-03-21 13:19] LABS: Red Blood Cell CSF 0 MM*3; White Blood Cell CSF 1 MM*3
[2025-03-21 13:20] LABS: Lymphocytes CSF 100 %
[2025-03-26 11:36] LABS: Oligoclonal Serum Yes
== END 2025-03-21 13:51 | disposition home or self-care (01) ==
PROVIDERS: Radiology Diagnostic Radiology; PCP Internal Medicine; Visit Provider Registered Nurse
PROC: 009U3ZZ Drainage of Spinal Canal, Percutaneous Approach (ICD-10-PCS; CPT 62270; principal; 2025-03-21 11:00)
DX: G93.2 Benign intracranial hypertension (principal); G37.9 Demyelinating disease of central nervous system, unspecified; H47.10 Unspecified papilledema; G43.909 Migraine, unspecified, not intractable, without status migrainosus; G44.209 Tension-type headache, unspecified, not intractable; G40.909 Epilepsy, unspecified, not intractable, without status epilepticus; R20.0 Anesthesia of skin; R41.3 Other amnesia; H53.149 Visual discomfort, unspecified; R63.2 Polyphagia; F32.A Depression, unspecified; F43.9 Reaction to severe stress, unspecified; F43.10 Post-traumatic stress disorder, unspecified; Z79.899 Other long term (current) drug therapy
CPT/HCPCS: 36415; 62328; 80048; 81025; 82945; 83873; 83916; 84157; 84166; 85025; 85610; 89051

== ENCOUNTER 2025-03-25 17:50 | Emergency (ER) | payer BC, SELFPAY ==
[2025-03-25 17:55] VITALS: BP 146/79; PULSE 103; RESP 18; TEMP 36.7; O2SAT 96; BMI 35.2
--- NOTE | 2025-03-25 18:17 | ED.GENADULT ---
HPI - General Adult General Chief complaint: Headache Stated complaint: Headache/Diarrhea post lumbar puncture Time Seen by Provider: 03/25/25 20:03 History of Present Illness ED Provider: Isaias Choi MD HPI narrative: 39-year-old female reports headache described as retro-orbital diffuse and pressure-like ?pressure on my brain?. No head injury. She reports about 5 days ago she had a lumbar puncture and started developing headache 2 days later. Headache is slightly worsened today and she had episodes of severe pain. Denies fever, head injury, neck stiffness. She tells me that she had lumbar puncture to evaluate for pseudotumor and that the pressure was 21 at the time. Related Data Home Medications ?Medication ?Instructions ?Recorded ?Confirmed albuterol sulfate 90 mcg/actuation 1 inh inhalation Q4-6H PRN 02/19/25 02/26/25 breath activated powder inhaler,sensor (Proair Digihaler) levothyroxine 112 mcg tablet 112 mcg PO QAM 02/19/25 02/26/25 omeprazole 20 mg capsule,delayed 20 mg PO DAILY 02/19/25 02/26/25 release sumatriptan succinate 100 mg tablet See Rx Instructions PO .COMPLEX 02/19/25 02/26/25 valacyclovir 500 mg tablet 500 mg PO Q12H 02/19/25 02/26/25 acetazolamide 500 mg 500 mg PO BID 02/26/25 02/26/25 capsule,extended release paroxetine HCl 20 mg tablet 20 mg PO DAILY 02/26/25 02/26/25 Previous Rx's ?Medication ?Instructions ?Recorded ketorolac 10 mg tablet 10 mg PO Q8H #10 tabs 03/26/25 metoclopramide HCl 10 mg tablet 10 mg PO Q6H PRN nausea and 03/26/25 vomiting #7 tabs Allergies Allergy/AdvReac Type Severity Reaction Status Date / Time No Known Allergies Allergy Verified 03/25/25 17:58 [facility] Past Medical History [facility] Narrative: Celiac, Riya's, migraine Medical History (Updated 03/26/25 @ 00:47 by Isaias Choi MD) Seizure disorder PTSD (post-traumatic stress disorder) Anxiety Migraine Tension headache Social History Social History Patient Tobacco Use Status: Never used Tobacco Smoked in Last 30 Days: No Use of substances other than those prescribed or required for medical reasons: Yes Substance Use Type: Marijuana Advance Directives: No Advance Directives Information Provided: No Do you have a plan to hurt others: No Plan Patient : No Physical Exam ED Exam Exam: GENERAL: Well appearing. No apparent distress. Alert. HEAD/NECK: Normal to inspection. Neck supple. No cervical lymphadenopathy. EYES: Normal to inspection. Sclera non-icteric. ENMT: External nose normal. RESPIRATORY: Respiratory effort normal. Lungs clear to auscultation bilaterally. CARDIOVASCULAR: Regular rate. Normal rhythm. No murmur. No rubs. GI: Soft, non-tender, non-distended. No rebound or guarding. No masses palpable. No hepatosplenomegaly. SKIN: No jaundice. Lower back lumbar puncture wound unremarkable no midline bony tenderness NEUROLOGICAL: Alert. PSYCHIATRIC: Alert. Appearance appropriate for situation. Attitude cooperative. OTHER: Comprehensive Neuro exam: Face symmetric, tongue midline, strong symmetric eye closure, pupils symmetric and reactive to light, intact sensation to the face throughout, intact strong face deviation and shoulder shrug. Sensation intact to light touch throughout 5 out of 5 strength in bilateral upper extremities, 5 and 5 strength in lower extremities Vital Signs: Vital Signs - 24 hr 03/25/25 17:55 03/25/25 19:47 03/26/25 01:08 Temperature 98.0 F 99.5 F 98.3 F Pulse Rate 103 H 86 82 Respiratory Rate 18 17 12 Blood Pressure 146/79 H 127/84 113/67 Pulse Oximetry 96 100 97 Oxygen Delivery Method Room Air Room Air Room Air 03/26/25 01:18 Temperature 98.3 F Pulse Rate 82 Respiratory Rate 12 Blood Pressure 113/67 Pulse Oximetry 97 Oxygen Delivery Method Room Air BMI result Body Mass Index 35.2 Course Course Course Narrative: RME, this is a rapid medical exam performed by Umang Gallegos please refer to primary provider for complete H&P- 39-year-old female presents for evaluation of headache. She had a recent lumbar puncture due to history of pseudotumor cerebri and demyelinating disease. She reports that there is ?clear liquid seeping out of my back. Plan for basic labs Medications Administered Discontinued Medications Generic Name Dose Route Start Last Admin Trade Name Freq PRN Reason Stop Dose Admin Dexamethasone Sodium Phosphate 8 mg 03/25/25 21:42 03/25/25 22:09 Dexamethasone Sod Phosphate 4 Mg/Ml Vial IVPUSH 03/25/25 21:43 8 mg ONCE ONE Administration Sodium Chloride 1,000 mls @ 999 mls/hr 03/25/25 21:45 03/25/25 23:10 Ns IV 03/25/25 22:45 Infused .Q1H1M ANITHA Infusion Ketorolac Tromethamine 30 mg 03/25/25 21:42 03/25/25 22:09 Ketorolac Tromethamine 30 Mg/Ml Vial IVPUSH 03/25/25 21:43 30 mg ONCE ONE Administration Metoclopramide HCl 10 mg 03/25/25 21:42 03/25/25 22:09 Metoclopramide Hcl 10 Mg/2 Ml Vial IVPUSH 03/25/25 21:43 10 mg ONCE ONE Administration Medical Decision Making Medical Decision Making MDM Narrative: Medical Decision Makin-year-old female with diffuse headache 5 days after lumbar puncture. The patient is actually quite well-appearing in the emergency department. The lumbar puncture wound site is normal and she has no tenderness there. She is not on blood thinners and I doubt spinal epidural hematoma. I did consider the possibility of CSF leak however the patient's well appearance and after shared decision-making she and I decided to try conservative noninvasive treatment 1st which appeared to be successful in improving her headache. Preliminary Favored Differential Diagnosis: CSF leak, spinal epidural hematoma, tension headache, dehydration, migraine among additional considered etiologies Testing Interpreted Independently: ?See below for details Radiology or Lab testing Results Reviewed: ?See below for details Consults: ?See below for details Independent Historians/External Chart Reviews: ?See below for details Social Determinants of Health Impacting MDM/Planning: ?See below for details Differential Diagnosis Differential Diagnoses: The differential diagnosis associated with the presentation includes Preliminary Favored Differential Diagnosis: CSF leak, spinal epidural hematoma, tension headache, dehydration, migraine among additional considered etiologies Lab Data [facility] [place] Lab Attestation statement: I reviewed the patient's lab results. 03/25/25 18:31 03/25/25 18:31 Labs: Lab Results 03/25/25 03/25/25 Range/Units 18:31 20:45 WBC 6.4 (4.8-10.8) X10*3/uL RBC 4.07 L (4.20-5.50) X10*6/uL Hgb 12.7 (12.0-16.0) g/dl Hct 37.3 (37.0-47.0) % MCV 91.6 (80.0-98.0) fL MCH 31.2 (27.0-33.0) pg MCHC 34.0 (31.0-35.0) g/dl RDW 13.4 (11.0-16.0) % Plt Count 173 (160-400) X10*3/uL MPV 11.2 (9.4-12.3) fL Immature Gran % (Auto) 0.3 (0.0-0.4) % Neut % (Auto) 64.2 (45-73) % Lymph % (Auto) 24.8 (20-40) % [place] % (Auto) 8.5 (2-11) % Eos % (Auto) 1.6 (0-4) % Baso % (Auto) 0.6 (0-2) % Lymph # (Auto) 1.6 (1.2-4.9) X10*3/uL [place] # (Auto) 0.5 (0.1-1.2) X10*3/uL Eos # (Auto) 0.1 (0.0-0.4) X10*3/uL Baso # (Auto) 0.0 (0.0-0.2) X10*3/uL Abs Immat Gran (auto) 0.02 (0.00-0.03) X10*3/uL Absolute Neuts (auto) 4.1 (2.0-8.3) x10*3/uL Absolute Nucleated RBC 0.000 (0.0-0.012) X10*3/uL Nucleated RBC % (auto) 0.0 (0.0-0.2) /100WBC PT 11.9 (10.9-12.4) SEC INR 1.0 (0.9-1.1) Sodium 141 (135-145) mmol/L Potassium 3.9 (3.3-5.1) mmol/L Chloride 107 (96-108) mmol/L Carbon Dioxide 24 (22-29) mmol/L Anion Gap 14 (12-20) BUN 7 L (9-16) mg/dL Creatinine 0.71 (0.5-1.4) mg/dL Estim Creat Clear Calc 131.8 Estimated GFR > 60 Random Glucose 113 (60-115) mg/dL Calcium 9.7 D (8.4-10.2) mg/dL Total Bilirubin 1.1 H (0.0-1.0) mg/dL AST 19 (5-31) U/L ALT 14 (0-31) U/L Alkaline Phosphatase 63 (39-117) U/L Total Protein 7.6 (6.5-8.0) g/dL Albumin 4.8 (3.5-5.0) g/dL Lipase 18 (8-78) U/L Urine Color Yellow Urine Appearance Clear Urine pH 6.5 (5.0-9.0) Ur Specific [place] <= 1.005 (1.005-1.025) Urine Protein Negative (Neg-Trace) mg/dL Urine Glucose (UA) Negative (Negative) mg/dL Urine Ketones Negative (Negative) mg/dL Urine Blood Trace H (Negative) Urine Nitrite Negative (Negative) Ur Leukocyte Esterase Trace H (Negative) Urine RBC 0-2 (0-2) /HPF Urine WBC 0-5 (0-5) /HPF Ur Squamous Epith Cells 0-2 (0-2) /HPF Urine Bacteria None Seen (None Seen) Hyaline Casts 0-2 (0-2) /LPF External Record Review External record reviewed: Other Neurology records reviewed 02/26/2025 reveal history of seizure disorder PTSD anxiety migraine tension, Neuro-Ophthalmology Dr. Robert botello referred the patient for possible optic disc swelling in each eye I also reviewed the lumbar puncture with fluoroscopic guidance note from 03/21/2025 this revealed CSF opening pressure of 21, 16 mL was drained. Chronic Conditions Patient?s care impacted by: Other (PTSD,) Discharge Plan Discharge Clinical Impression: Headache Patient Disposition: Home, Self-Care Additional Instructions: DISCHARGE DIAGNOSES: Headache HISTORY OF PRESENTATION: ?Headache for 3 days EMERGENCY DEPARTMENT COURSE,TESTS, TREATMENTS: While in the ED today you were evaluated and had a reassuring normal neurologic examination. You were given multiple treatments including intravenous fluid, intravenous metoclopramide, intravenous dexamethasone, intravenous ketorolac with improvement. DISCHARGE MEDICATIONS: ?[We have made no changes to your regular medication regimen] we have added oral ketorolac and metoclopramide for the next 4 days FOLLOW-UP: ?Call your primary or general physician soon as possible to discuss your symptoms, your ED visit and to discuss follow up plans Call your neurologist if your headache persists if it becomes severe you can return back to the emergency department INSTRUCTIONS ?& RETURN PRECAUTIONS: If any symptoms change first call your primary physician, if it is after-hours your primary doctors office should have a provider orientation & mobility specialist you can speak with. If the symptoms are severe or very concerning to you then call 911 or return to the ED. Isaias Choi MD Emergency Physician [facility] Prescriptions: New metoclopramide HCl 10 mg tablet 10 mg PO Q6H PRN (Reason: nausea and vomiting) Qty: 7 0RF ketorolac 10 mg tablet 10 mg PO Q8H Qty: 10 0RF Rx Instructions: Patient received an emergency department intravenous ketorolac with good relief. maximum total duration of 5 days from all oral, intranasal, or parenteral formulations No Action sumatriptan succinate 100 mg tablet See Rx Instructions PO .COMPLEX Rx Instructions: take 1 tab at onset of headache; if no relief, may repeat 1 tab after at least 2 hrs; max = 2 tabs/24 hrs PO valacyclovir 500 mg tablet 500 mg PO Q12H omeprazole 20 mg capsule,delayed release(DR/EC) 20 mg PO DAILY levothyroxine 112 mcg tablet 112 mcg PO QAM Proair Digihaler 90 mcg/actuation aero powdr breath act w/sensor 1 inh inhalation Q4-6H PRN acetazolamide 500 mg capsule, extended release 500 mg PO BID paroxetine HCl 20 mg tablet 20 mg PO DAILY Interventions: ED Discharge Assessment Last Done: 03/26/25 01:18 Discharge Date/Time: 03/26/25 01:18 Print Language: Bol[place]ian
[2025-03-25 18:38] LABS: Hematocrit 37.3 % (37.0-47.0); Hemoglobin 12.7 g/dl (12.0-16.0); Imm Gran Abs Auto 0.02 X10*3/uL (0.00-0.03); Imm Gran Pct Auto 0.3 % (0.0-0.4); Lymphocytes Absolute Auto 1.6 X10*3/uL (1.2-4.9); MANUAL DIFF FLAG NO; Mean Corpuscular HGB Conc 34.0 g/dl (31.0-35.0); Mean Corpuscular Hemoglobin 31.2 pg (27.0-33.0); Mean Corpuscular Volume 91.6 fL (80.0-98.0); NRBC Abs Auto 0.000 X10*3/uL (0.0-0.012); NRBC Pct Auto 0.0 /100WBC (0.0-0.2); Platelet Count 173 X10*3/uL (160-400); Red Blood Count 4.07 X10*6/uL (4.20-5.50); White Blood Count 6.4 X10*3/uL (4.8-10.8)
[2025-03-25 18:43] LABS: INTERNATIONAL NORM RATIO 1.0 (0.9-1.1); Prothrombin Time 11.9 SEC (10.9-12.4)
--- OUTSIDE RECORDS SUMMARY | 2025-03-25 18:54 | XMS_ITS | Clinical Summary ---
Author Organization [facility] it Address [address] [place] [address] Care Team Providers Care Commercial Crabber Name Role Phone Huong Nicolas MD Primary Care Provider [phone] Surgical History Surgery Date Site/Laterality Comments TYMPANOSTOMY TUBE PLACEMENT PROCEDURE: HISTORICAL PE TUBES TONSILLECTOMY ADENOIDECTOMY, BILATERAL MYRINGOTOMY AND TUBES PROCEDURE: [place] TONSILLECTOMY & ADENOIDECTOMY <AGE 13 Medical History [...] age to complete this topic Care Teams Commercial Crabber Relationship Specialty Start Date End Date Huong Nicolas MD [address] [place] [address] PCP - General 04/09/21
[2025-03-25 18:56] LABS: Alanine Aminotransferase 14 U/L (0-31); Albumin Level 4.8 g/dL (3.5-5.0); Alkaline Phosphatase 63 U/L (39-117); Anion Gap 14 (12-20); Aspartate Amino Transferase 19 U/L (5-31); Blood Urea Nitrogen 7 mg/dL (9-16); Calcium 9.7 mg/dL (8.4-10.2); Carbon Dioxide 24 mmol/L (22-29); Chloride 107 mmol/L (96-108); Creatinine Clr Calc Pharmacy 131.8; Estimated Glomerular Filt Rate > 60; Lipase 18 U/L (8-78); Potassium 3.9 mmol/L (3.3-5.1); Sodium 141 mmol/L (135-145); Total Protein 7.6 g/dL (6.5-8.0)
[2025-03-25 19:47] VITALS: BP 127/84; PULSE 86; RESP 17; TEMP 37.5; O2SAT 100
[2025-03-25 20:51] LABS: Appearance Urine Clear; Glucose Urine UA Negative (Negative); PH 6.5 (5.0-9.0); Specific Gravity - Urine <= 1.005 (1.005-1.025); UMIC TRIGGER UACC YES
[2025-03-26 01:08] VITALS: BP 113/67; PULSE 82; RESP 12; TEMP 36.8; O2SAT 97
[2025-03-26 01:18] VITALS: BP 113/67; PULSE 82; RESP 12; TEMP 36.8; O2SAT 97
== END 2025-03-26 01:18 | disposition home or self-care (01) ==
PROVIDERS: Physician Assistant; Emergency Provider Emergency Medicine; PCP Internal Medicine
DX: R51.9 Headache, unspecified (principal); R19.7 Diarrhea, unspecified; G97.1 Other reaction to spinal and lumbar puncture
CPT/HCPCS: 36415; 80053; 81001; 83690; 85025; 85610; 96361; 96374; 96375; 99284; 99285; J1100; J1885; J2765

== ENCOUNTER 2025-04-16 12:10 | Outpatient (AMB) | payer BC, SELFPAY ==
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
--- OUTSIDE RECORDS SUMMARY | 2025-04-16 16:46 | XMS_ITS | Clinical Summary ---
Author Organization [facility] it Address [address] [place] [address] Care Team Providers Care Hide Spreader Name Role Phone Huong Nicolas MD Primary Care Provider [phone] Surgical History Surgery Date Site/Laterality Comments TYMPANOSTOMY TUBE PLACEMENT PROCEDURE: HISTORICAL PE TUBES TONSILLECTOMY ADENOIDECTOMY, BILATERAL MYRINGOTOMY AND TUBES PROCEDURE: [place] TONSILLECTOMY & ADENOIDECTOMY <AGE 13 Medical History [...] 06/30/2022 Social Influencers of Health Screening 06/30/2022 Depression Screening 08/02/2024 COVID-19 Vaccine (1 - 2023-2 5 season) 2025 Influenza Vaccine (#1) 2025 0, 08/27/2009 HIB [...] age to complete this topic Care Teams Hide Spreader Relationship Specialty Start Date End Date Huong Nicolas MD [address] [place] [address] PCP - General 04/09/21
== END 2025-04-16 12:38 | disposition home or self-care (01) ==
LOC: HO.HSM 12:11
PROVIDERS: PCP Internal Medicine; Visit Provider Registered Nurse
DX: G93.2 Benign intracranial hypertension (principal); G43.909 Migraine, unspecified, not intractable, without status migrainosus; G44.209 Tension-type headache, unspecified, not intractable
CPT/HCPCS: 99214